=== PATIENT | male | born 1965 | race Caucasian/White ===

== ENCOUNTER 2016-06-24 10:01 | Emergency (ER) | payer SELFPAY ==
[2016-06-24 10:06] VITALS: BP 151/90; BMI 40.1
[2016-06-24] MEDS ORDERED: TORADOL 60 MG VIAL IM ONE (10:42)
--- NOTE | 2016-06-24 10:42 | DR.GENAD ---
HPI - PCP Primary Care Physician: nfd - Complaint/Symptoms Chief Complaint:: patient stated he has chronic back issues and yesterday he was helping his sister move and hurt it again. this morning he stated it was worse than yesterday. Self Treatment fo Chief Complaint: none - Source History Provided: Patient - Mode of Arrival Mode of Arrival: Ambulatory - Timing Onset of Chief Complaint: 06/22/16 Came on: Suddenly PMH - PMH Past Medical History: No Past Medical History: Anemia Past Surgical History: Yes Surgical History: AAA Repair, Carotid Endarterectomy, Cholecystectomy Past Surgical History Comment: hernia Unable to Obtain Due To: Altered mental status - Family History History of Family Medical Conditions: Yes Family Medical History: Diabetes Mellitus, Cancer, [place], Hypertension - Social History Does patient currently use any type of tobacco product: Yes Have you used tobacco products in the last 12 months: Yes Type of Tobacco Use: Cigarettes How many years tobacco product used: 40 Does any household member use tobacco: Yes Alcohol Use: None Do you use any recreational Drugs:: No Lives With: Family Lives Where: Home - infectious screening In the last 2 months have you had wt loss of >10#?: NO Have you had fever, night sweats or hemotysis?: No Have you traveled outside the country in the last 6 months?: No Isolation: Standard ROS - Review of Systems Constitutional: No Symptoms Reported Eyes: No Symptoms Reported ENTM: No Symptoms Reported Respiratoy: No Symptoms Reported Cardiovascular: No Symptoms Reported Gastrointestinal/Abdominal: No Symptoms Reported Genitourinary: No Symptoms Reported Neurological: No Symptoms Reported, Other (back pain) Musculoskeletal: No Symptoms Reported Integumentary: No Symptoms Reported Hematologic/Lymphatic: No Symptoms Reported Endocrine: No Symptoms Reported Psychiatric: No Symptoms Reported All Other Systems: Reviewed and Negative PE - Vital Signs Vitals: Temperature 98.6 F Pulse Rate 90 Respiratory Rate 16 Blood Pressure 151/90 O2 Sat by Pulse Oximetry 96 - General Limitations: No Limitations General Appearance: Alert, In No Apparent Distress - Head Head Exam: Normal Inspection, Atraumatic - Eyes Eye exam: Normal Appearance, PERRL, EOMI - ENT ENT Exam: Normal Exam, Mucous Membranes Moist TM/Canal Exam: Bilateral Normal Nose Exam: Normal Nose Exam Mouth Exam: Normal Inspection, Trismus - Neck Neck Exam: Normal Inspection - Chest Chest Inspection: Normal Inspection - Respiratory Respiratory Exam: Normal Lung Sounds Bilat Respiratory Exam: Bilateral Clear to Auscultation - Cardiovascular Cardiovascular Exam: Regular Rate, Normal Rhythm - Abdominal Exam Abdominal Exam: Normal Inspection Abdominal Tenderness: negative: RUQ, RLQ, LUQ, LLQ, Epigastrium, Suprapubic, Diffuse, Mild, Moderate, Severe, Other - Extremities Extremities Exam: Normal Inspection - Back Back Exam: Normal Inspection - Neurologic Neurological Exam: Alert, Oriented X3, CN II-XII Intact - Psychiatric Psychiatric Exam: Normal Affect - Skin Skin Exam: Warm, Intact ROR - XRAY XRAY Interpreted by: Radiologist (Lumbar spondylosis and dis space narrowing at L4-5 and L5-1; Grade 1 anerolisthesis of L4on L5) - Diagnosis Discharge Problem: Narrowing of intervertebral disc space - Discharge Plan Condition: Stable - Follow ups/Referrals Follow ups/Referrals: NFD,None [Primary Care Provider] - 3 days - Instructions
[2016-06-24] MEDS ORDERED: TORADOL 60 MG VIAL ONE (10:53)
--- NOTE | 2016-06-24 11:27 | RAD ---
HISTORY: Chronic back pain Study: Four views lumbar spine Comparison: None Findings: There is grade 1 anterolisthesis of L4 on L5. This may be due to pars interarticularis defects. Othe rwise alignment is normal. Vertebral body heights are preserved. There is multilevel spondylosis a nd degenerative disc space narrowing at L4-5 and L5-S1. No acute fracture or subluxation identified. IMPRESSION: 1. Lumbar spondylosis and disc space narrowing at L4-5 and L5-S1. 2. Grade 1 anterolisthesis of L4 on L5 that may be due to pars interarticularis defects. Reported By:
== END 2016-06-24 11:52 | disposition home or self-care (01) ==
LOC: ER 10:14
DX: M51.36 Other intervertebral disc degeneration, lumbar region (principal)
CPT/HCPCS: 72100; 96372; 99282; J1885

== ENCOUNTER 2019-08-13 18:50 | Inpatient (IN) ==
--- NOTE | 2019-08-13 19:03 | DR.CP ---
HPI Time Seen Time Seen by Provider: 08/13/19 19:03 PCP Primary Care Physician: PATRIZIA Complaint Chief Complaint Doctor Comments: Patient is a 53 year old male who presents ED with chest pain located in his left pectoral region rating down his left arm. Patient states he is had similar pain and it feels like when he had a heart attack several years ago. Patient states that he is had several episodes and more frequent episodes in the past week. Patient states he is also had some syncopal episodes in the past year. Patient states that he has high blood pressure, and shortness of breath in [place] consistent with heart failure he has not been worked up for that yet. Patient states that he smokes 2 packs a day and it is down from 4 packs a day. Patient has no other past medical history. Chief Complaint:: left sided chest pain earlier today; reports same pain on friday- Coronavirus risk:travel/contact w/high risk person: No Has patient experienced Coronavirus symptoms: No Reviewed Nurses Notes Review: Yes Source History Provided: Patient Mode of Arrival Mode of Arrival: Ambulatory Timing Onset of Chief Complaint: 08/10/19 PMH PMH Past Medical History: Yes Past Medical History: Anemia, Coronary Artery Disease, Dyslipidemia and Hy pertension Past Medical History Comment: HX [place]; CHRONIC BACK PAIN Past Surgical History: Yes Surgical History: AAA Repair, Carotid Endarterectomy and Cholecystectomy Family History History of Family Medical Conditions: Yes Family Medical History: Diabetes Mellitus, Cancer, [place] and Hypertension Social History Type of Tobacco Use: Cigars Does any household member use tobacco: No Alcohol Use: None Do you use any recreational Drugs:: No Lives With: Spouse Lives Where: Home Infectious screening Have you traveled outside the country in the last 6 months?: No Isolation: Standard ROS Review of Systems Constitutional: Fatigue Eyes: No Symptoms Reported ENTM: No Symptoms Reported Respiratoy: No Symptoms Reported Cardiovascular: Chest Pain and Edema Gastrointestinal/Abdominal: No Symptoms Reported Genitourinary: No Symptoms Reported Neurological: No Symptoms Reported Musculoskeletal: No Symptoms Reported Integumentary: No Symptoms Reported Hematologic/Lymphatic: No Symptoms Reported Endocrine: No Symptoms Reported Psychiatric: No Symptoms Reported All Other Systems: Reviewed and Negative PE Vitals Vitals: Temperature 97.5 F Pulse Rate 85 Respiratory Rate 14 Blood Pressure 127/61 O2 Sat by Pulse Oximetry 92 General Limitations: No Limitations General Appearance: Alert, In No Apparent Distress and Anxious Head Head Exam: Normal Inspection, Atraumatic and Normocephalic Eyes Eye exam: Normal Appearance, PERRL and EOMI MDM Differential Diagnosis Differential Diagnosis: Angina, Chest Wall Pain, Cholelithasis, Costochondritis, Myocardial Infarction, Pericarditis, Pneumonia and Pulmonary Embolus COURSE Reevaluation 1st: Improved (19:45 PT STABLE ) 2nd: Improved (20:20 pt is stable nc restarted and pt improved. ) 3rd: Unchanged (21:18 pt is stable and no change in symptoms. ) Consultation Consultation Comments: Dr. Mcgovern called and discussed case with Ana Cristina:19 and he agrees to admission Education/Counseling Education/Counseling: Patient, Family, Education and Counseling Educated On: Treatment, Diagnosis, Prognosis and Needs for Follow Up ROR Labs Reviewed Laboratory Results Reviewed?: Yes Result Diagrams: 08/13/19 19:24 08/13/19 19:24 Laboratory: WBC 7.6 X10^3/uL (3.6-10.0) 08/13/19 19: RBC 4.62 X10^6/uL (4.7-6.0) L 08/13/19 19:24 Hgb 14.4 g/dL (13.5-18.0) 08/13/19 19:24 Hct 41.7 % (42.0-54.0) L 08/13/19 19:24 MCV 90.3 fL (80.0-100.0) 08/13/19 19:24 MCH 31.2 pg (27.0-34.0) 08/13/19 19: MCHC 34.5 g/dL (33.0-35.0) 08/13/19 19:24 RDW 12.8 % (11.6-16.5) 08/13/19 19:24 Plt Count 239 X10^3/uL (150.0-450.0) 08/13/19 19:24 MPV 7.5 fL (7.4-11.0) 08/13/19 19:24 Neut % (Auto) 61.4 % (42.0-75.0) 08/13/19 19:24 Lymph % (Auto) 29.5 % (21.0-51.0) 08/13/19 19:24 [place] % (Auto) 5.9 % (0.0-13.0) 08/13/19 19:24 Eos % (Auto) 2.6 % (0.9-2.9) 08/13/19 19:24 Baso % (Auto) 0.6 % (0.2-1.0) 08/13/19 19:24 Neut # (Auto) 4.6 x10^3/uL (2.2-4.8) 08/13/19 19:24 Lymph # (Auto) 2.2 X10^3/uL (1.3-2.9) 08/13/19 19:24 [place] # (Auto) 0.4 x10^3/uL (0.3-0.8) 08/13/19 19:24 Eos # (Auto) 0.2 x10^3/uL (0.0-0.2) 08/13/19 19:24 Baso # (Auto) 0.0 X10^3/uL (0.0-0.1) 08/13/19 19:24 Absolute Nucleated RBC 0.0 /100WBC 08/13/19 19:24 PT 13.2 SECONDS (11.8-14.3) 08/13/19 19:24 INR Target Range - 08/13/19 19:24 INR 1.03 (0.8-1.3) 08/13/19 19:24 APTT 29.1 SECONDS (22.9-36.5) 08/13/19 19:24 PTT Comment - 08/13/19 19:24 D-Dimer 147 ng/mL (0-400) 08/13/19 19:24 Sample Site Rr 08/13/19 19:55 ABG pH 7.430 (7.35-7.45) 08/13/19 19:55 ABG pCO2 46.0 mmHg (35.0-45.0) H 08/13/19 19:55 ABG pO2 68.0 mmHg (80.0-100.0) L 08/13/19 19:55 ABG HCO3 30.5 mmol/L (22-26) H* 08/13/19 19:55 ABG O2 Saturation 94.0 % (90-100) 08/13/19 19:55 ABG Base Excess 5.3 mmol/L (-2.0-2.0) H 08/13/19 19:55 Maikol Test Pos 08/13/19 19:55 A-a Gradient 24.0 mmHg 08/13/19 19:55 FiO2 21.0 08/13/19 19:55 Blood Gas Comments Ranjeet well sw 08/13/19 19:55 Sodium 141 mmol/L (136-145) 08/13/19 19:24 Corrected Sodium 142 mmol/L (136-145) 08/13/19 19:24 Potassium 3.8 mmol/L (3.5-5.1) 08/13/19 19:24 Chloride 103 mmol/L (98-107) 08/13/19 19:24 Carbon Dioxide 30.3 mmol/L (21-32) 08/13/19 19:24 BUN 20 mg/dL (7-18) H 08/13/19 19:24 Creatinine 1.33 mg/dL (0.70-1.30) H 08/13/19 19:24 Est GFR (MDRD) Af Amer > 60 (>60) 08/13/19 19:24 Est GFR (MDRD) Non-Af > 60 (>60) 08/13/19 19:24 Glucose 124 mg/dL (65-99) H 08/13/19 19:24 Calcium 8.6 mg/dL (8.5-10.1) 08/13/19 19:24 Corrected Calcium 9.2 mg/dL (8.5-10.1) 08/13/19 19:24 Total Bilirubin 0.30 mg/dL (0.2-1.0) 08/13/19 19:24 AST 26 Units/L (15-37) 08/13/19 19:24 ALT 45 Units/L (12-78) 08/13/19 19:24 Alkaline Phosphatase 76 Units/L (46-116) 08/13/19 19:24 Creatine Kinase 318 Units/L (39-308) H 08/13/19 19:24 CK-MB (CK-2) 2.5 ng/mL (0-4.0) 08/13/19 19:24 CK/CKMB % Calc 0.8 % (<4) 08/13/19 19:24 Troponin I < 0.02 ng/mL (0-1.5) 08/13/19 19:24 B-Natriuretic Peptide 10.6 pg/mL (0-79) 08/13/19 19:24 Total Protein 7.6 g/dL (6.4-8.2) 08/13/19 19:24 Albumin 3.3 g/dL (3.4-5.0) L 08/13/19 19:24 Globulin 4.3 g/dL (2.5-4.5) 08/13/19 19:24 Albumin/Globulin Ratio 0.8 Ratio (1.1-2.1) L 08/13/19 19:24 Other Results Comments: [id number] 1965 Sex: M Location: ER Order Number(s): [id number] Procedure(s):CHEST, 1 VIEW Ordering Physician: Tani Osborn Primary Care: NFD,None Service Date: 08/13/19 Service Time: 1910 HISTORY CP STUDY CHEST, 1 VIEW COMPARISON None FINDINGS The trachea is midline. The cardiac silhouette is unremarkable . The lungs are relatively clear without focal infiltrate or effusion. The bony thorax is unremarkable. IMPRESSION No acute cardiopulmonary disease. Electronically signed by: ERASMO GIRON (August 13, 2019 19:40:54) Report Electronically signed: 08/13/[id number] CC: Tani Osborn M.D. XRAY XRAY Interpreted by: Both EKG Rate: 94 (Read by Tani Osborn @ 19:08, no acute ischemia, no prior available to compare to. ) [place]: Normal Rhythm: NSR Block: None Hypertrophy: None ST: Normal Opioid Opioid Risk Tool Total: 0 Total Score Risk Category: Low Risk Copyright: Yao predicting aberrant behaviors Diagnosis Discharge Problem: ACS (acute coronary syndrome), Hypoxia Narrative Support Text: Today the patient was seen in the emergency department. All labs, imaging, consults with other specialists, and procedures were discussed with the patient and or patients family. All emergent needs such as pain mgmt, medical mgmt, Procedures, or consultations were addressed. The care plan has been discussed with the patient and or patients family. Patients and or family stated agreement and understanding of risks and benefits of care plans.
[2019-08-13] MEDS ORDERED: ASPIRIN 81 MG CHEWTAB ONE (19:12)
[2019-08-13] MEDS ORDERED: ASPIRIN 81 MG CHEWTAB PO ONE (19:29)
[2019-08-13 19:39] LABS: BASOPHILS % (AUTO) 0.6 % (0.2-1.0); EOSINOPHILS # (AUTO) 0.2 x10^3/uL (0.0-0.2); EOSINOPHILS % (AUTO) 2.6 % (0.9-2.9); HEMATOCRIT 41.7 % (42.0-54.0); HEMOGLOBIN 14.4 g/dL (13.5-18.0); LYMPHOCYTES # (AUTO) 2.2 X10^3/uL (1.3-2.9); LYMPHOCYTES % (AUTO) 29.5 % (21.0-51.0); MEAN CORPUSCULAR HEMOGLOBIN 31.2 pg (27.0-34.0); MEAN CORPUSCULAR HGB CONC 34.5 g/dL (33.0-35.0); MEAN CORPUSCULAR VOLUME 90.3 fL (80.0-100.0); MEAN PLATELET VOLUME 7.5 fL (7.4-11.0); MONOCYTES # (AUTO) 0.4 x10^3/uL (0.3-0.8); MONOCYTES % (AUTO) 5.9 % (0.0-13.0); NEUTROPHILS # (AUTO) 4.6 x10^3/uL (2.2-4.8); NEUTROPHILS % (AUTO) 61.4 % (42.0-75.0); PLATELET COUNT 239 X10^3/uL (150.0-450.0); RED BLOOD COUNT 4.62 X10^6/uL (4.7-6.0); RED CELL DISTRIBUTION WIDTH 12.8 % (11.6-16.5); WHITE BLOOD COUNT 7.6 X10^3/uL (3.6-10.0)
--- NOTE | 2019-08-13 19:42 | RAD ---
HISTORYCPSTUDYCHEST, 1 VIEWCOMPARISONNoneFINDINGSThe trachea is midline. The cardiac silhouette is unremarkable . The lungs are relatively clear without focal infiltrate or effusion. The bony thorax is unremarkable.IMPRESSIONNo acute cardiopulmonary disease.Electronically signed by: ERASMO GIRON (August 13, 2019 19:40:54)
[2019-08-13 19:53] LABS: BLOOD UREA NITROGEN 20 mg/dL (7-18); CALCIUM 8.6 mg/dL (8.5-10.1); CARBON DIOXIDE 30.3 mmol/L (21-32); CHLORIDE 103 mmol/L (98-107); COR NA(FOR HYPERGLY) 142 mmol/L (136-145); CREATININE 1.33 mg/dL (0.70-1.30); SODIUM 141 mmol/L (136-145); TROPONIN I < 0.02 ng/mL (0-1.5); eGFR NON BLACK RACES > 60 (>60)
[2019-08-13 19:58] LABS: ALANINE AMINOTRANSFERASE 45 Units/L (12-78); ALBUMIN 3.3 g/dL (3.4-5.0); ALKALINE PHOSPHATASE 76 Units/L (46-116); ASPARTATE AMINO TRANSFERASE 26 Units/L (15-37); CKMB % 0.8 % (<4); COR CA(FOR HYPOALB) 9.2 mg/dL (8.5-10.1); CREATINE KINASE 318 Units/L (39-308); CREATINE KINASE MB 2.5 ng/mL (0-4.0); TOTAL PROTEIN 7.6 g/dL (6.4-8.2)
[2019-08-13] MEDS ORDERED: LASIX IVP ONE ×2 (19:59→20:36)
[2019-08-13 20:11] LABS: ABG ALLEN TEST POS; ABG BASE EXCESS 5.3 mmol/L (-2.0-2.0); ABG HCO3 30.5 mmol/L (22-26)
[2019-08-13 21:52] LABS: BILIRUBIN,URINE NEGATIVE (NEGATIVE); BLOOD/HEMOGLOBIN,URINE NEGATIVE (NEGATIVE); GLUCOSE, URINE NEGATIVE (NEGATIVE); KETONES,URINE NEGATIVE (NEGATIVE); LEUKOCYTE ESTERASE ,URINE NEGATIVE (NEGATIVE); NITRITES,URINE NEGATIVE (NEGATIVE); PROTEIN,URINE NEGATIVE (NEGATIVE); UROBILINOGEN,URINE 1+ (NORMAL)
[2019-08-13 22:07] LABS: APPEARANCE,URINE CLEAR (CLEAR); COLOR,URINE YELLOW (YELLOW); RBC,URINE NONE SEEN /HPF (0-3)
[2019-08-13 22:08] LABS: BACTERIA,URINE NEGATIVE /HPF (NEGATIVE); SQUAMOUS EPITHELIAL CELL,UR RARE /HPF (NEGATIVE)
[2019-08-13] MEDS ORDERED: LOVENOX INJ 120 MG SYR SC ONE (22:46)
[2019-08-13] MEDS ORDERED: NS 1000 ML 1,000 ML ONE (22:46)
[2019-08-13] MEDS ORDERED: LOVENOX INJ 40 MG SYR SC ONE (22:47)
[2019-08-13] MEDS: LOVENOX INJ 150 MG SYR SC SCH (22:50)
[2019-08-13] MEDS: NS 1000 ML 1,000 ML IV SCH (22:55)
[2019-08-14 01:44] LABS: CKMB % 0.7 % (<4); CREATINE KINASE 325 Units/L (39-308); CREATINE KINASE MB 2.2 ng/mL (0-4.0); TROPONIN I < 0.02 ng/mL (0-1.5)
[2019-08-14] MEDS ORDERED: PERCOCET TAB 5/325 MG PO PRN (02:28)
[2019-08-14 05:40] LABS: BASOPHILS # (AUTO) 0.1 X10^3/uL (0.0-0.1); EOSINOPHILS # (AUTO) 0.3 x10^3/uL (0.0-0.2); EOSINOPHILS % (AUTO) 3.7 % (0.9-2.9); HEMATOCRIT 41.9 % (42.0-54.0); HEMOGLOBIN 14.1 g/dL (13.5-18.0); LYMPHOCYTES # (AUTO) 2.9 X10^3/uL (1.3-2.9); LYMPHOCYTES % (AUTO) 42.1 % (21.0-51.0); MEAN CORPUSCULAR HEMOGLOBIN 30.9 pg (27.0-34.0); MEAN CORPUSCULAR HGB CONC 33.8 g/dL (33.0-35.0); MEAN CORPUSCULAR VOLUME 91.4 fL (80.0-100.0); MEAN PLATELET VOLUME 8.7 fL (7.4-11.0); MONOCYTES # (AUTO) 0.5 x10^3/uL (0.3-0.8); MONOCYTES % (AUTO) 6.6 % (0.0-13.0); NEUTROPHILS # (AUTO) 3.3 x10^3/uL (2.2-4.8); NEUTROPHILS % (AUTO) 46.6 % (42.0-75.0); PLATELET COUNT 230 X10^3/uL (150.0-450.0); RED BLOOD COUNT 4.58 X10^6/uL (4.7-6.0); RED CELL DISTRIBUTION WIDTH 12.7 % (11.6-16.5)
[2019-08-14 05:57] LABS: ALANINE AMINOTRANSFERASE 42 Units/L (12-78); ALBUMIN 3.4 g/dL (3.4-5.0); ALKALINE PHOSPHATASE 77 Units/L (46-116); ASPARTATE AMINO TRANSFERASE 23 Units/L (15-37); BLOOD UREA NITROGEN 20 mg/dL (7-18); CALCIUM 8.3 mg/dL (8.5-10.1); CARBON DIOXIDE 30.4 mmol/L (21-32); CHLORIDE 103 mmol/L (98-107); COR NA(FOR HYPERGLY) 139 mmol/L (136-145); CREATININE 1.09 mg/dL (0.70-1.30); SODIUM 139 mmol/L (136-145); TOTAL PROTEIN 7.7 g/dL (6.4-8.2); eGFR NON BLACK RACES > 60 (>60)
[2019-08-14] MEDS: NS 1000 ML 1,000 ML IV SCH ×2 (06:11→16:57)
[2019-08-14] MEDS ORDERED: PERCOCET TAB 5/325 MG ONE (06:18)
[2019-08-14 08:02] LABS: CKMB % 0.7 % (<4); CREATINE KINASE 291 Units/L (39-308); TROPONIN I < 0.02 ng/mL (0-1.5)
[2019-08-14] MEDS: NICOTINE PATCH TD SCH (08:40)
[2019-08-14] MEDS: LOVENOX INJ 150 MG SYR SC SCH ×2 (09:35→20:48)
--- NOTE | 2019-08-14 11:08 | DR.H&P ---
H&P - History & Physical for Day of: H&P Date: 08/13/19 - Chief Complaint Chief Complaint: chest pain, sob - History of Present Illness History of Present Illness: PT IS 53 WM ER ADMISSION WITH CHEST PAIN AND DOBSON. PT REPORTS HE IS DAILY SMOKER BUT REPORTS INCREASED SOB WITHOUT FEVER OR UPPER RESPIRATORY SYMPTOMS. PT REPORTS MULTIPLE NEAR SYNCOPAL EPISODES. PT REPORTS HE HAD A "HEART ATTACK" OVER 5 YEARS AGO, DENIES BYPASS OR STENT. PT HAS AAA REPAIR AND CAROTID ENDARTECOMTY. PT ADMITTED FOR TREATMENT OF ACUTE ILLNESS, R/O AMI. - Past Medical History Past Medical History: Coronary Artery Disease, Hypertension, Dyslipidemia, Anemia - Past Surgical History Surgical History: AAA Repair, Carotid Endarterectomy, Cholecystectomy - Family History Family Medical History: Diabetes Mellitus, Cancer, [place], Coronary Artery Disease, Heart Failure, Sudden Cardiac , Hypertension - Social History Does patient currently use any type of tobacco product: Yes Type of Tobacco Use: Cigarettes How many years tobacco product used: 35 Does any household member use tobacco: No Alcohol Use: None Drug Use: None - Medications Home Medications: No Known Allergies [NKA] Allergy (Verified 08/13/19 19:00) CONTINUE taking the following medications aspirin 325 mg PO DAILY 08/13/19 [History] gabapentin 100 mg PO BID 08/13/19 [History] lisinopril 5 mg PO DAILY 08/13/19 [History] meloxicam 15 mg PO DAILY 08/13/19 [History] oxycodone-acetaminophen 1 tab PO QID PRN 08/13/19 [History] rosuvastatin 20 mg PO DAILY 08/13/19 [History] tizanidine 4 mg PO QHS 08/13/19 [History] triamterene-hydrochlorothiazid 1 cap PO DAILY 08/13/19 [History] - Review of Systems Constitutional: Weakness Eyes: No Symptoms Reported, Vision Change Respiratory: Shortness of Breath, SOB with Excertion Cardiovascular: Chest Pain, Edema Gastrointestinal: No Symptoms Reported Genitourinary: No Symptoms Reported Musculoskeletal: No Symptoms Reported Skin: No Symptoms Reported Neurological: No Symptoms Reported - Physical Exam Vital Signs: Temperature 98.3 F Pulse Rate [Apical] 96 Pulse Rate 72 Respiratory Rate 20 Blood Pressure [Left Arm] 117/75 Blood Pressure 106/64 O2 Sat by Pulse Oximetry 93 Oriented: Normal Eyes: Normal Ear: Normal Nose: Normal Throat: Normal Respiratory: RLL Diminished, LLL Diminished Cardiovascular: Normal, Edema : Normal Auscultation: Bowel Sounds: Normal Palpation: Normal Tenderness: Normal Skin: Normal Musculoskeletal: Normal Psychiatric: Normal Affect: Anxious Speech Pattern: Clear, Appropriate - Assessment/Plan (1) Chest pain Status: Acute Plan: ADMIT SERIAL CE AND EKG. CXR ON ADMISSION, ABG ON ADMISSION. VERIFY HOME MEDICATION, BP CONTROL. SUPPLEMENTAL O2 (2) DOBSON (dyspnea on exertion) Status: Acute (3) Hypertension Status: Acute (4) Hyperlipidemia Status: Acute - Allergies Allergies/Adverse Reactions: Allergies Allergy/AdvReac Type Severity Reaction Status Date / Time No Known Allergies [NKA] Allergy Verified 08/13/19 19:00
--- NOTE | 2019-08-14 11:14 | PCM.PROG ---
Progress Note - Progress Note for Day of Date of Exam: 08/14/19 - Subjective Subjective: PT IS 53 WM ER ADMISSION WITH CO CHEST PAIN, EXERTIONAL SOB AND NEAR SYNCOPE. PT HAD SERIAL CE AND EKG. PT HAD ELEVATED CK ON ADMISSION, IMPROVED TO NORMAL THIS AM. PT EKG WITH NSR. PT CONTINUES TO CO SOB ON EXERTION EVEN UP TO RESTROOM. PT IS CURRENTLY ON SUPPLEMENTAL O2 WITH O2 SAT 94%. RESUMED ASPIRIN, STATIN AND ANTIHYPERTION. PLAN TO OBTAIN CTA CHEST THIS AM. - Past Medical Family Social History Past Med/Fam/Surg Hx: No changes since H&P Allergies: Allergies No Known Allergies [NKA] Allergy (Verified 08/13/19 19:00) - Review of Systems ROS: No change since H&P - Vital Signs and I&O's Vital Signs: Temperature 98.3 F Pulse Rate [Apical] 96 Pulse Rate 72 Respiratory Rate 20 Blood Pressure [Left Arm] 117/75 Blood Pressure 106/64 O2 Sat by Pulse Oximetry 93 Intake and Output: Intake & Output 08/11/19 08/12/19 08/13/19 08/14/19 11:59 11:59 11:59 11:59 Intake Total 920 / 920 Output Total 1300 / 1300 Balance -380 / -380 - Physical Exam Oriented: Normal Eyes: Normal Ear: Normal Nose: Normal Throat: Normal Respiratory: Diminished Cardiovascular: Normal, Edema : Normal Auscultation: Bowel Sounds: Normal Tenderness: Normal Skin: Normal Musculoskeletal: Normal Psychiatric: Normal Affect: Anxious Speech Pattern: Clear, Appropriate - Laboratory and Diagnostics Result Diagrams: 08/14/19 04:30 08/14/19 04:30 Labs: Laboratory WBC 7.0 X10^3/uL (3.6-10.0) 08/14/19 04:30 RBC 4.58 X10^6/uL (4.7-6.0) L 08/14/19 04:30 Hgb 14.1 g/dL (13.5-18.0) 08/14/19 04:30 Hct 41.9 % (42.0-54.0) L 08/14/19 04:30 MCV 91.4 fL (80.0-100.0) 08/14/19 04:30 MCH 30.9 pg (27.0-34.0) 08/14/19 04:30 MCHC 33.8 g/dL (33.0-35.0) 08/14/19 04:30 RDW 12.7 % (11.6-16.5) 08/14/19 04:30 Plt Count 230 X10^3/uL (150.0-450.0) 08/14/19 04:30 MPV 8.7 fL (7.4-11.0) 08/14/19 04:30 Neut % (Auto) 46.6 % (42.0-75.0) 08/14/19 04:30 Lymph % (Auto) 42.1 % (21.0-51.0) 08/14/19 04:30 [place] % (Auto) 6.6 % (0.0-13.0) 08/14/19 04:30 Eos % (Auto) 3.7 % (0.9-2.9) H 08/14/19 04:30 Baso % (Auto) 1.0 % (0.2-1.0) 08/14/19 04:30 Neut # (Auto) 3.3 x10^3/uL (2.2-4.8) 08/14/19 04:30 Lymph # (Auto) 2.9 X10^3/uL (1.3-2.9) 08/14/19 04:30 [place] # (Auto) 0.5 x10^3/uL (0.3-0.8) 08/14/19 04:30 Eos # (Auto) 0.3 x10^3/uL (0.0-0.2) H 08/14/19 04:30 Baso # (Auto) 0.1 X10^3/uL (0.0-0.1) 08/14/19 04:30 Absolute Nucleated RBC 0.0 /100WBC 08/14/19 04:30 PT 13.2 SECONDS (11.8-14.3) 08/13/19 19:24 INR Target Range - 08/13/19 19:24 INR 1.03 (0.8-1.3) 08/13/19 19:24 APTT 29.1 SECONDS (22.9-36.5) 08/13/19 19:24 PTT Comment - 08/13/19 19:24 D-Dimer 147 ng/mL (0-400) 08/13/19 19:24 Sample Site Rr 08/13/19 19:55 ABG pH 7.430 (7.35-7.45) 08/13/19 19:55 ABG pCO2 46.0 mmHg (35.0-45.0) H 08/13/19 19:55 ABG pO2 68.0 mmHg (80.0-100.0) L 08/13/19 19:55 ABG HCO3 30.5 mmol/L (22-26) H* 08/13/19 19:55 ABG O2 Saturation 94.0 % (90-100) 08/13/19 19:55 ABG Base Excess 5.3 mmol/L (-2.0-2.0) H 08/13/19 19:55 Maikol Test Pos 08/13/19 19:55 A-a Gradient 24.0 mmHg 08/13/19 19:55 FiO2 21.0 08/13/19 19:55 Blood Gas Comments Ranjeet well sw 08/13/19 19:55 Sodium 139 mmol/L (136-145) 08/14/19 04:30 Corrected Sodium 139 mmol/L (136-145) 08/14/19 04:30 Potassium 3.7 mmol/L (3.5-5.1) 08/14/19 04:30 Chloride 103 mmol/L (98-107) 08/14/19 04:30 Carbon Dioxide 30.4 mmol/L (21-32) 08/14/19 04:30 BUN 20 mg/dL (7-18) H 08/14/19 04:30 Creatinine 1.09 mg/dL (0.70-1.30) 08/14/19 04:30 Est GFR (MDRD) Af Amer > 60 (>60) 08/14/19 04:30 Est GFR (MDRD) Non-Af > 60 (>60) 08/14/19 04:30 Glucose 115 mg/dL (65-99) H 08/14/19 04:30 POC Glucose (mg/dL) 123 mg/dL (65-99) H 08/14/19 11:08 Calcium 8.3 mg/dL (8.5-10.1) L 08/14/19 04:30 Corrected Calcium TNP 08/14/19 04:30 Total Bilirubin 0.30 mg/dL (0.2-1.0) 08/14/19 04:30 AST 23 Units/L (15-37) 08/14/19 04:30 ALT 42 Units/L (12-78) 08/14/19 04:30 Alkaline Phosphatase 77 Units/L (46-116) 08/14/19 04:30 Creatine Kinase 291 Units/L (39-308) 08/14/19 07:15 CK-MB (CK-2) 2.0 ng/mL (0-4.0) 08/14/19 07:15 CK/CKMB % Calc 0.7 % (<4) 08/14/19 07:15 Troponin I < 0.02 ng/mL (0-1.5) 08/14/19 07:15 B-Natriuretic Peptide 10.6 pg/mL (0-79) 08/13/19 19:24 Total Protein 7.7 g/dL (6.4-8.2) 08/14/19 04:30 Albumin 3.4 g/dL (3.4-5.0) 08/14/19 04:30 Globulin 4.3 g/dL (2.5-4.5) 08/14/19 04:30 Albumin/Globulin Ratio 0.8 Ratio (1.1-2.1) L 08/14/19 04:30 Specimen Type Random urine 08/13/19 21:36 Urine Color Yellow (YELLOW) 08/13/19 21:36 Urine Appearance Clear (CLEAR) 08/13/19 21:36 Urine pH 7.0 (5.0 - 8.0) 08/13/19 21:36 Ur Specific [place] 1.010 (1.000-1.030) 08/13/19 21:36 Urine Protein Negative (NEGATIVE) 08/13/19 21:36 Urine Glucose (UA) Negative (NEGATIVE) 08/13/19 21:36 Urine Ketones Negative (NEGATIVE) 08/13/19 21:36 Urine Occult Blood Negative (NEGATIVE) 08/13/19 21:36 Urine Nitrite Negative (NEGATIVE) 08/13/19 21:36 Urine Bilirubin Negative (NEGATIVE) 08/13/19 21:36 Urine Urobilinogen 1+ (NORMAL) 08/13/19 21:36 Ur Leukocyte Esterase Negative (NEGATIVE) 08/13/19 21:36 Urine RBC None seen /HPF (0-3) 08/13/19 21:36 Urine WBC 0-2 /HPF (0-5) 08/13/19 21:36 Ur Squamous Epith Cells Rare /HPF (NEGATIVE) 08/13/19 21:36 Urine Bacteria Negative /HPF (NEGATIVE) 08/13/19 21:36 Ur Culture Indicated? No/not indicated 08/13/19 21:36 SARS-CoV-2 (PCR) Negative (NEGATIVE) 08/13/19 21:36 - Plan (1) Chest pain Status: Acute Plan: SERIAL CE AND EKG OBTAINED ON ADMISSION. ABG ON ADMISSION, CTA CHEST THIS AM, KEEP NPO UNTIL SCAN. ASPIRIN, STATIN THERAPY, BP CONTROL. SUPPLEMENTAL O2 (2) DOBSON (dyspnea on exertion) Status: Acute (3) Hypertension Status: Acute (4) Hyperlipidemia Status: Acute
[2019-08-14] MEDS: ASPIRIN PO SCH (11:29)
[2019-08-14] MEDS: ZESTRIL TAB 5 MG PO SCH (11:29)
[2019-08-14] MEDS: PATIENT'S HOME MEDICATION PO PRN ×3 (11:30→21:52)
[2019-08-14] MEDS: NEURONTIN CAP 100 MG PO SCH ×2 (11:30→20:48)
[2019-08-14 12:48] VITALS: BMI 43.3
--- NOTE | 2019-08-14 14:35 | CT ---
HISTORYCHEST PAIN, SOBSTUDYCTA CHESTCOMPARISONNoneTECHNIQUEMultiple axial images of the chest were obtained from the thoracic inlet to the upper abdomen after the administration of IV contrast. 3D reconstructions utilizing axial MIPS imaging was performed and reviewed. Dose reduction techniques including Automated Exposure Control (AEC) and adjustment of mA and kV were utilized.FINDINGSScattered subcentimeter lymph nodes are seen within the mediastinum. There is no significant pericardial effusion observed. The thoracic aorta is normal in its contour without evidence for aneurysmal dilatation. Timing of the contrast bolus is suboptimal for evaluation of pulmonary emboli. Mild emphysematous changes are noted. Subsegmental atelectasis and/or scarring are seen within both lower lobes. Otherwise no CT evidence of focal consolidation, pneumothorax, or pleural effusion is identified.IMPRESSIONMild emphysematous changes.Suboptimal timing of the contrast bolus for evaluation of pulmonary emboli.Electronically signed by: ERASMO GIRON (August 14, 2019 14:34:31)
[2019-08-15] MEDS: NS 1000 ML 1,000 ML IV SCH ×2 (04:21→05:33)
[2019-08-15 06:00] LABS: BASOPHILS % (AUTO) 0.6 % (0.2-1.0); EOSINOPHILS # (AUTO) 0.2 x10^3/uL (0.0-0.2); EOSINOPHILS % (AUTO) 2.6 % (0.9-2.9); HEMATOCRIT 39.8 % (42.0-54.0); HEMOGLOBIN 13.6 g/dL (13.5-18.0); LYMPHOCYTES # (AUTO) 2.3 X10^3/uL (1.3-2.9); LYMPHOCYTES % (AUTO) 38.1 % (21.0-51.0); MEAN CORPUSCULAR HEMOGLOBIN 31.3 pg (27.0-34.0); MEAN CORPUSCULAR HGB CONC 34.1 g/dL (33.0-35.0); MEAN CORPUSCULAR VOLUME 91.7 fL (80.0-100.0); MONOCYTES # (AUTO) 0.4 x10^3/uL (0.3-0.8); NEUTROPHILS # (AUTO) 3.2 x10^3/uL (2.2-4.8); NEUTROPHILS % (AUTO) 52.7 % (42.0-75.0); PLATELET COUNT 220 X10^3/uL (150.0-450.0); RED BLOOD COUNT 4.34 X10^6/uL (4.7-6.0); RED CELL DISTRIBUTION WIDTH 12.9 % (11.6-16.5)
[2019-08-15 06:25] LABS: ALANINE AMINOTRANSFERASE 53 Units/L (12-78); ALBUMIN 3.1 g/dL (3.4-5.0); ALKALINE PHOSPHATASE 65 Units/L (46-116); ASPARTATE AMINO TRANSFERASE 31 Units/L (15-37); CALCIUM 8.7 mg/dL (8.5-10.1); CARBON DIOXIDE 29.7 mmol/L (21-32); CHLORIDE 105 mmol/L (98-107); CKMB % 0.6 % (<4); COR CA(FOR HYPOALB) 9.4 mg/dL (8.5-10.1); COR NA(FOR HYPERGLY) 141 mmol/L (136-145); CREATINE KINASE 171 Units/L (39-308); CREATINE KINASE MB 1.1 ng/mL (0-4.0); CREATININE 1.08 mg/dL (0.70-1.30); SODIUM 140 mmol/L (136-145); TOTAL PROTEIN 7.3 g/dL (6.4-8.2); TROPONIN I < 0.02 ng/mL (0-1.5); eGFR NON BLACK RACES > 60 (>60)
[2019-08-15 06:36] LABS: BLOOD UREA NITROGEN 15 mg/dL (7-18)
[2019-08-15] MEDS ORDERED: CRESTOR TAB 10 MG PO SCH (09:00)
[2019-08-15] MEDS: NEURONTIN CAP 100 MG PO SCH (09:49)
[2019-08-15] MEDS: ASPIRIN PO SCH (09:49)
[2019-08-15] MEDS: ZESTRIL TAB 5 MG PO SCH (09:49)
[2019-08-15] MEDS: LOVENOX INJ 150 MG SYR SC SCH (09:49)
[2019-08-15] MEDS: NICOTINE PATCH TD SCH (09:50)
[2019-08-15] MEDS: PATIENT'S HOME MEDICATION PO PRN (10:12)
[2019-08-15 12:12] VITALS: BP 123/71
== END 2019-08-15 12:35 | disposition short-term general hospital (02) | DRG 313 ==
LOC: MED/SURG 18:52 → ER 18:52 → MED/SURG 23:36
PROVIDERS: ADMIT Internal Medicine; ATTEND Internal Medicine
DX: R55 Syncope and collapse; R06.02 Shortness of breath; I26.99 Other pulmonary embolism without acute cor pulmonale; I25.10 Atherosclerotic heart disease of native coronary artery without angina pectoris; Z72.0 Tobacco use; I11.9 Hypertensive heart disease without heart failure; E11.65 Type 2 diabetes mellitus with hyperglycemia; R07.89 Other chest pain; E78.2 Mixed hyperlipidemia; Z11.59 Encounter for screening for other viral diseases
CPT/HCPCS: 36415; 36600; 71010; 71045; 71275; 80053; 81001; 82550; 82553; 82803; 83880; 84484; 85025; 85378; 85610; 85730; 87635; 93005; 94760; 96365; 96372; 96374; 96375; 99284; A4222; G0378; J1650; J1940; J7030

== ENCOUNTER 2021-08-03 08:53 | Observation (INO) ==
[2021-08-03 09:02] VITALS: BMI 41.3
--- NOTE | 2021-08-03 09:21 | DR.CP ---
HPI Time Seen Time Seen by Provider: 08/03/21 09:08 PCP Primary Care Physician: DR ACHARYA Complaint Chief Complaint Doctor Comments: left eye pain and left chest pain since yesterday. History of spivey's pausy and heart disease. Chief Complaint:: PT C/O DIFFICULTY SEEING OUT OF LEFT EYE SINCE YESTERDAY ASSOCIATED WITH PHOTOSENSITIVITY AND PAIN. THIS MORNING PT STARTED HAVING CONSTANT SUBSTERNAL CHEST HEAVINESS WITH PALPITATIONS WITH SHORTNESS OF BREATH. Self Treatment fo Chief Complaint: TOOK ASPIRIN 81MG PO THIS MORNING. Source History Provided: Patient Mode of Arrival Mode of Arrival: Ambulatory Timing Onset of Chief Complaint: 08/03/21 PMH PMH Past Medical History: Yes Past Medical History: Coronary Artery Disease, Hypertension and [place] Past Medical History Comment: DEGENERATIVE DISC DISEASE, BELLS PALSY Past Surgical History: Yes Surgical History: Ortho Surgery Past Surgical History Comment: BACK SURGERY, LEFT ROTATOR CUFF REPAIR Family History History of Family Medical Conditions: Yes Family Medical History: Diabetes Mellitus, [place] and Coronary Artery Disease Social History Does patient currently use any type of tobacco product: Yes Have you used tobacco products in the last 12 months: Yes Type of Tobacco Use: Cigarettes Does any household member use tobacco: No Alcohol Use: None Do you use any recreational Drugs:: No Lives With: Family Lives Where: Home Infectious screening In the last 2 months have you had wt loss of >10#?: NO Have you had fever, night sweats or hemotysis?: No Have you traveled outside the country in the last 6 months?: No Isolation: Standard ROS Review of Systems Constitutional: No Symptoms Reported Eyes: Eye Pain (left eye pain) ENTM: No Symptoms Reported Respiratoy: No Symptoms Reported Cardiovascular: Chest Pain (left chest pain starting this am but had practically resolved by the time he presented to the er.) Gastrointestinal/Abdominal: No Symptoms Reported Genitourinary: No Symptoms Reported Neurological: No Symptoms Reported Musculoskeletal: No Symptoms Reported Integumentary: No Symptoms Reported Hematologic/Lymphatic: No Symptoms Reported Endocrine: No Symptoms Reported Psychiatric: No Symptoms Reported All Other Systems: Reviewed and Negative PE Vitals Vitals: Temperature 97.5 F Pulse Rate 53 Respiratory Rate 10 Blood Pressure [Right Arm] 123/71 Blood Pressure [Left Arm] 117/75 Blood Pressure 162/69 O2 Sat by Pulse Oximetry 93 General Limitations: No Limitations General Appearance: Alert and In Distress (mild distress) Head Head Exam: Normal Inspection Eyes Eye exam: Normal Appearance and Other (right pupil constrivcted but reacts,left pupil dilated but react sluggishly.) ENT ENT Exam: Normal Exam Chest Chest Inspection: Normal Inspection Respiratory Respiratory Exam: Normal Lung Sounds Bilat Cardiovascular Cardiovascular Exam: Regular Rate and Normal Rhythm Pulse: Normal Edema: Normal Abdominal Exam Abdominal Exam: Normal Inspection, Normal Bowel Sounds and Soft Extremities Extremities Exam: Normal Inspection Back Back Exam: Normal Inspection Neurologic Neurological Exam: Alert and Oriented X3 Psychiatric Psychiatric Exam: Normal Affect and Normal Mood Skin Skin Exam: Warm, Dry, Intact and Normal Color MDM Additional Information Findings: UNEQUAL PUPILS,CHEST PAIN,LEFT EYE PAIN,TIA,CVA,FATIGUE Differential Diagnosis Differential Diagnosis: Angina COURSE Treatment Treatment: PATIENT REMAINED RELATIVELY STABLE DURING ER EVALUATION. CARDIAC RESENDEZ WAS NEGATIVE EXCEPT SINUS BRADYCARDIA. CARDIAC ENZYMES WERE NORMAL AND CT OF BRAIN WAS NEGATIVE FOR BLEED OR MASSS. THE CHEST XRAY SHOWED COPD. PATIENT WAS GIVEN ASA 325MG IN ER AND WILL NEED FURTHER EVALUATION OF LEFT PUPIL FOR DILATION. SPOKE TO DR ACHARYA AT 1125 ABOUT THIS PATIENT AND HE STATED TO REFER TO OBSERVATION TO FURTHER R/O CARDIAC ISSUES AND OBSEREVE NEUROLOGICALLY FOR ANY CHANGES. WILL GET MRI OF BRAIN TODAY OR TOMORROW. THE PATIENT WAS TOLD OF THE INTENT AND WAS AGGREABLE TO THE OBSERVATION. ROR Labs Reviewed Laboratory Results Reviewed?: Yes Result Diagrams: 08/03/21 09:31 08/03/21 09:31 Laboratory: WBC 9.2 X10^3/uL (3.6-10.0) 08/03/21 09:31 RBC 5.11 X10^6/uL (4.7-6.0) 08/03/21 09:31 Hgb 16.0 g/dL (13.5-18.0) 08/03/21 09:31 Hct 45.6 % (42.0-54.0) 08/03/21 09:31 MCV 89.2 fL (80.0-100.0) 08/03/21 09:31 MCH 31.4 pg (27.0-34.0) 08/03/21 09: MCHC 35.2 g/dL (33.0-35.0) H 08/03/21 09: RDW 13.5 % (11.6-16.5) 08/03/21 09:31 Plt Count 251 X10^3/uL (150.0-450.0) 08/03/21 09: MPV 7.7 fL (7.4-11.0) 08/03/21: Neut % (Auto) 70.5 % (42.0-75.0) 08/03/21: Lymph % (Auto) 23.0 % (21.0-51.0) 08/03/21: Terrell % (Auto) 3.8 % (0.0-13.0) 08/03/21: Eos % (Auto) 0.4 % (0.9-2.9) L 08/03/21: Baso % (Auto) 2.3 % (0.2-1.0) H 08/03/21: Neut # (Auto) 6.5 x10^3/uL (2.2-4.8) H 08/03/21: Lymph # (Auto) 2.1 X10^3/uL (1.3-2.9) 08/03/21: Terrell # (Auto) 0.4 x10^3/uL (0.3-0.8) 08/03/21: Eos # (Auto) 0.0 x10^3/uL (0.0-0.2) 08/03/21: Baso # (Auto) 0.2 X10^3/uL (0.0-0.1) H 08/03/21: Absolute Nucleated RBC 0.0 /100WBC 08/03/21: PT 13.6 SECONDS (11.8-14.3) 08/03/21: INR Target Range - 08/03/21: INR 1.07 (0.8-1.3) 08/03/21: APTT 29.0 SECONDS (22.9-36.5) 08/03/21: PTT Comment - 08/03/21: D-Dimer 0.58 ug/ml (0.0-0.57) H* 08/03/21: Sodium 135 mmol/L (136-145) L 08/03/21: Corrected Sodium 136 mmol/L (136-145) 08/03/21 09:31 Potassium 4.3 mmol/L (3.5-5.1) 08/03/21 09:31 Chloride 100 mmol/L (98-107) 08/03/21 09:31 Carbon Dioxide 27.8 mmol/L (21-32) 08/03/21 09:31 BUN 11 mg/dL (7-18) 08/03/21 09:31 Creatinine 0.89 mg/dL (0.70-1.30) 08/03/21 09:31 Est GFR (MDRD) Af Amer > 60 (>60) 08/03/21 09:31 Est GFR (MDRD) Non-Af > 60 (>60) 08/03/21 09:31 Glucose 137 mg/dL (65-99) H 08/03/21 09:31 Calcium 8.9 mg/dL (8.5-10.1) 08/03/21 09:31 Corrected Calcium TNP 08/03/21 09:31 Total Bilirubin 0.40 mg/dL (0.2-1.0) 08/03/21 09:31 AST 15 Units/L (15-37) 08/03/21 09:31 ALT 28 Units/L (12-78) 08/03/21 09:31 Alkaline Phosphatase 112 Units/L (46-116) 08/03/21 09:31 Creatine Kinase 111 Units/L (39-308) 08/03/21 09:31 CK-MB (CK-2) 3.5 ng/mL (0-4.0) 08/03/21 09:31 CK/CKMB % Calc 3.2 % (<4) 08/03/21 09:31 Troponin I High Sens 5.6 ng/L (4.0-60.0) 08/03/21 09:31 B-Natriuretic Peptide 26.9 pg/mL (0-79) 08/03/21 09:31 Total Protein 7.8 g/dL (6.4-8.2) 08/03/21 09:31 Albumin 3.5 g/dL (3.4-5.0) 08/03/21 09:31 Globulin 4.3 g/dL (2.5-4.5) 08/03/21 09:31 Albumin/Globulin Ratio 0.8 Ratio (1.1-2.1) L 08/03/21 09:31 SARS-CoV-2 (PCR) Negative (NEGATIVE) 08/03/21 11:35 XRAY XRAY Interpreted by: Radiologist (CT OF BRAIN NEGATIVE FOR BLEED OR MASS,CHEST XRAY SHOWED COPD.) EKG Rhythm: SB Opioid Opioid Risk Tool Age (Margarito box if 16-45): No History of Preadolescent Sexual Abuse: No Total: 0 Total Score Risk Category: Low Risk Copyright: Maximilian AGUIRRE predicting aberrant behaviors Diagnosis Discharge Problem: Neurologic disorder of eye movements Chest pain Qualifiers: Qualified Code(s): R07.9 - Chest pain, unspecified Instructions Forms: Precautions for COVID19 [facility] Patient Portal Social Distancing
[2021-08-03 09:41] LABS: BASOPHILS # (AUTO) 0.2 X10^3/uL (0.0-0.1); BASOPHILS % (AUTO) 2.3 % (0.2-1.0); EOSINOPHILS % (AUTO) 0.4 % (0.9-2.9); HEMATOCRIT 45.6 % (42.0-54.0); LYMPHOCYTES # (AUTO) 2.1 X10^3/uL (1.3-2.9); MEAN CORPUSCULAR HEMOGLOBIN 31.4 pg (27.0-34.0); MEAN CORPUSCULAR HGB CONC 35.2 g/dL (33.0-35.0); MEAN CORPUSCULAR VOLUME 89.2 fL (80.0-100.0); MEAN PLATELET VOLUME 7.7 fL (7.4-11.0); MONOCYTES # (AUTO) 0.4 x10^3/uL (0.3-0.8); MONOCYTES % (AUTO) 3.8 % (0.0-13.0); NEUTROPHILS # (AUTO) 6.5 x10^3/uL (2.2-4.8); NEUTROPHILS % (AUTO) 70.5 % (42.0-75.0); RED BLOOD COUNT 5.11 X10^6/uL (4.7-6.0); RED CELL DISTRIBUTION WIDTH 13.5 % (11.6-16.5); WHITE BLOOD COUNT 9.2 X10^3/uL (3.6-10.0)
[2021-08-03 10:12] LABS: ALANINE AMINOTRANSFERASE 28 Units/L (12-78); ALBUMIN 3.5 g/dL (3.4-5.0); ALKALINE PHOSPHATASE 112 Units/L (46-116); ASPARTATE AMINO TRANSFERASE 15 Units/L (15-37); BLOOD UREA NITROGEN 11 mg/dL (7-18); CALCIUM 8.9 mg/dL (8.5-10.1); CARBON DIOXIDE 27.8 mmol/L (21-32); CHLORIDE 100 mmol/L (98-107); CKMB % 3.2 % (<4); COR NA(FOR HYPERGLY) 136 mmol/L (136-145); CREATINE KINASE 111 Units/L (39-308); CREATINE KINASE MB 3.5 ng/mL (0-4.0); CREATININE 0.89 mg/dL (0.70-1.30); SODIUM 135 mmol/L (136-145); TOTAL PROTEIN 7.8 g/dL (6.4-8.2); eGFR NON BLACK RACES > 60 (>60)
--- NOTE | 2021-08-03 10:20 | RAD ---
CHEST, 1 VIEWHISTORY: Substernal chest painStudy: AP view of the chest.Comparison:NoneFindings:The cardiomediastinal silhouette is normal. No focal consolidations, pleural effusions or pneumothorax. Osseous structures demonstrate no acute abnormality. Bilateral hyperexpansion and interstitial prominence.IMPRESSION:1. No acute cardiopulmonary process.2. Findings of COPD.Electronically signed by: LING SELLERS (August 03, 2021 10:19:00)
--- NOTE | 2021-08-03 10:21 | CT ---
HISTORYLeft eye pain and decreased visionSTUDYCT head without contrastTechnique: Axial noncontrast images with coronal and sagittal reformats. Dose reduction procedures were used with mA/kv adjusted for body size.[id number] ventricles are normal in size shape and position. There are no focal areas of abnormal attenuation to suggest recent or remote CVA, hemorrhage, mass lesion, or extra-axial fluid collection. The visualized sinuses are clear. The globes are intact. The retro-orbital soft tissues are normal. The calvarium is intact. If acute CVA is a strong clinical consideration MRI with diffusion imaging would be of further diagnostic value in should be obtained.IMPRESSIONNo significant intracranial abnormality identifiedElectronically signed by: BAO LAIRD (August 03, 2021 10:20:25)
[2021-08-03] MEDS ORDERED: ASPIRIN PO ONE (10:22)
[2021-08-03] MEDS ORDERED: ASPIRIN ONE (10:24)
[2021-08-03 13:27] LABS: CKMB % 2.9 % (<4); CREATINE KINASE MB 2.8 ng/mL (0-4.0)
[2021-08-03] MEDS: PERCOCET TAB 5/325 MG PO SCH ×2 (15:00→20:58)
[2021-08-03] MEDS: NEURONTIN CAP 300 MG PO SCH ×2 (15:00→21:03)
--- NOTE | 2021-08-03 15:20 | MRI ---
HISTORYsevere left eye painSTUDYBRAIN W/O CONCOMPARISONCT earlier same dayTECHNIQUEMultiplanar multi-sequence MRI of the brain was obtained utilizing standard departmental protocol. Sagittal and axial T1 weighted images were obtained. Axial T2 and flair weighted images were performed as well. Axial diffusion weighted and ADC trace mapping was performed.FINDINGSThe midline structures appear unremarkable. The evaluation of the brain parenchyma demonstrates no abnormal signal characteristics to suggest intraparenchymal mass or hemorrhage. No extra-axial fluid collections are observed. The ventricular system appears symmetric and nondilated. The CP angle is normal in its appearance without brainstem mass or evidence for acoustic neuroma. The flow voids on both T1 and T2 weighted imaging appear unremarkable. Evaluation of the diffusion weighted imaging does not demonstrate abnormal signal characteristics to suggest acute ischemic change. The extracranial structures are unremarkable.IMPRESSIONUnremarkable MRI of the brain without contrast.Electronically signed by: SUMMER ANNE (August 03, 2021 15:19:21)
[2021-08-03] MEDS: NICOTINE PATCH TD SCH (15:26)
[2021-08-03] MEDS ORDERED: ULTRAM ONE (17:12)
[2021-08-03] MEDS: ULTRAM PO PRN (17:19)
[2021-08-03 17:37] LABS: CKMB % 3.1 % (<4); CREATINE KINASE MB 3.1 ng/mL (0-4.0)
[2021-08-04] MEDS: PERCOCET TAB 5/325 MG PO SCH ×3 (02:30→13:38)
[2021-08-04] MEDS: NEURONTIN CAP 300 MG PO SCH ×2 (05:12→13:38)
[2021-08-04] MEDS: ULTRAM PO PRN ×2 (05:13→05:18)
[2021-08-04 05:38] LABS: BASOPHILS % (AUTO) 0.5 % (0.2-1.0); EOSINOPHILS # (AUTO) 0.1 x10^3/uL (0.0-0.2); EOSINOPHILS % (AUTO) 1.1 % (0.9-2.9); HEMATOCRIT 45.2 % (42.0-54.0); HEMOGLOBIN 15.6 g/dL (13.5-18.0); LYMPHOCYTES # (AUTO) 2.9 X10^3/uL (1.3-2.9); LYMPHOCYTES % (AUTO) 30.3 % (21.0-51.0); MEAN CORPUSCULAR HGB CONC 34.5 g/dL (33.0-35.0); MEAN CORPUSCULAR VOLUME 89.9 fL (80.0-100.0); MEAN PLATELET VOLUME 8.3 fL (7.4-11.0); MONOCYTES # (AUTO) 0.4 x10^3/uL (0.3-0.8); MONOCYTES % (AUTO) 4.4 % (0.0-13.0); NEUTROPHILS # (AUTO) 6.1 x10^3/uL (2.2-4.8); NEUTROPHILS % (AUTO) 63.7 % (42.0-75.0); RED BLOOD COUNT 5.02 X10^6/uL (4.7-6.0); RED CELL DISTRIBUTION WIDTH 13.7 % (11.6-16.5); WHITE BLOOD COUNT 9.6 X10^3/uL (3.6-10.0)
[2021-08-04 05:55] LABS: ALANINE AMINOTRANSFERASE 26 Units/L (12-78); ALBUMIN 3.3 g/dL (3.4-5.0); ALKALINE PHOSPHATASE 102 Units/L (46-116); ASPARTATE AMINO TRANSFERASE 12 Units/L (15-37); BLOOD UREA NITROGEN 11 mg/dL (7-18); CALCIUM 9.2 mg/dL (8.5-10.1); CHLORIDE 101 mmol/L (98-107); COR CA(FOR HYPOALB) 9.8 mg/dL (8.5-10.1); CREATININE 0.92 mg/dL (0.70-1.30); SODIUM 138 mmol/L (136-145); TOTAL PROTEIN 7.6 g/dL (6.4-8.2); eGFR NON BLACK RACES > 60 (>60)
[2021-08-04] MEDS: NICOTINE PATCH TD SCH (08:46)
[2021-08-04] MEDS ORDERED: TobraDEX OPHTH OINT LEFTEYE SCH (09:00)
[2021-08-04] MEDS ORDERED: ASPIRIN EC 81 MG PO SCH (09:00)
[2021-08-04] MEDS ORDERED: ZANAFLEX PO SCH (09:00)
[2021-08-04] MEDS ORDERED: ZESTRIL TAB 5 MG PO SCH (09:00)
[2021-08-04 11:34] VITALS: BP 124/71
--- NOTE | 2021-08-23 21:55 | DR.CARTERS ---
Short Stay Summary - Admission Date Date of Admission: 08/03/21 - Discharge Date Discharge Date: 08/04/21 - Admission Diagnoses (1) Chest pain Status: Acute (2) Neurologic disorder of eye movements Status: Acute (3) Bacterial conjunctivitis Status: Acute - Hospital Course Hospital Course: IS A 55 YEAR OLD PATIENT OF OURS. HE PRESENTED TO THE ER WITH COMPLAINTS OF AND DIFFICULTY SEEING OUT OF THE LEFT EYE. IT IS ASSOCIATED WITH PHOTOSENSITIVITY AND PAIN. THAT STARTED ONE DAY PRIOR TO ARRIVAL. ON THE MORNING OF ARRIVAL, PATIENT BEGAN HAVING CHEST PAIN. HE DESCRIBED PAIN SUBSTERNAL, CONSTANT, HEAVINESS, AND HE RATED PAIN A 2/10 AT THE TIME OF PRESENTATION. PAIN WAS INITIALLY A 5/10 WHEN IT STARTED. HE ALSO ADMITTED TO PALPATATIONS AND SHORTNESS OF BREATH. HIS PMH INCLUDES: CAD, HTN, [place], BELLS PALSY, AND DEGENERATIVE DISC DISEASE. ON EXAMINATION OF PUPILS, THE RIGHT PUPIL IS CONSTRICTED, BUT REACTS. THE LEFT PUPIL IS DILATED, BUT REACTS SLUGGISHLY. ON ARRIVAL TO THE HOSPTIAL, HIS VITALS WERE 97.5-64-22-94%-139/77. LABS WERE OBTAINED. WBC 9.2, RBC 5.11, HGB 16.0, HCT 45.6, D-DIMER 0.58, PT 13.6, INR 1.07, PTT 29.0, SODIUM 135, POTASSIUM 4.3, CHLORIDE 100, CARBON DIOXIDE 27.8, BUN 11, CREATININE 0.89, GLUCOSE 137, CALCIUM 8.9, AST 15, ALT 28, ALK PHOS 112, TOTAL PROTEIN 7.8, ALBUMIN 3.5, BNP 26.9. CARDIAC ENZYMES WERE WITHIN NORMAL LIMITS. A BRAIN CT WAS OBTAINED AND WAS NEGATIVE FOR ACUTE ABNORMALITY. A CHEST XRAY WAS NEGATIVE AND REVEALED COPD, BUT NEGATIVE FOR ACUTE CARDIOPULMONARY PROCESS. A BRAIN MRI WAS OBTAINED AND WAS UNREMARKABLE. EKG REVEALED: SINUS ZAINA WITH HR 58. IN THE ER, HE WAS GIVEN ECOTRIN 325MG PO X 1. HE WAS ADMITTED OBSERVATION STATUS FOR CHEST PAIN RULE OUT ACUTE WI AND NEUROLOGICAL DEFICIT. WE PLAN TO OBTAIN SERIAL CARDIAC ENZYMES AND EKGS. WE WILL ALSO PERFORM NEURO CHECKS Q4H. OTHERWISE, WE WILL FOLLOW-UP WITH AM LABS AND CONTINUE TO MONITOR. ON THE MORNING FOLLOWING ADMISSION, PATIENT IS ALERT AND ORIENTED, LYING IN BED ON MORNING ROUNDS. HE DENIES CHEST PAIN. HE CONTINUES WITH COMPLAINTS OF LEFT EYE PAIN AT TIMES, BUT REPORTS IMPROVEMENT SINCE ADMISSION. ON EXAMINATION, HE IS BRADYCARDIC WITH HR 56. BILATERAL LUNGS NOTED WITH DIMINISHED LUNG SOUNDS THROUGHOUT. ABDOMEN IS ROUND, SOFT, AND NON-TENDER WITH NORMAL BOWEL SOUNDS NOTED IN ALL QUADRANTS. NO UPPER OR LOWER EXTREMITY EDEMA NOTED. HIS VITALS THIS MORNING ARE: 97.8-56-18-96%-143/63. LABS WERE OBTAINED. WBC 9.6, RBC 5.02, HGB 15.6, HCT 45.2, SODIUM 138, POTASSIUM 4.5, CHLORIDE 101, CARBON DIOXIDE 33.0, BUN 11, CREATININE 0.92, GLUCOSE 98, AST 12, ALT 26, ALK PHOS 102, TOTAL PROTEIN 7.6, ALBUMIN 3.3. HER CARDIAC ENZYMES HAVE BEEN NORMAL. NO CHANGES HAVE BEEN NOTED TO EKGS. WE PLANNED FOR DISCHARGE. INSTRUCTIONS FOR MEDICATIONS AND FOLLOW-UP WERE DISCUSSED WITH PATIENT AND FAMILY. THEY VERBALIZED UNDERSTANDING OF ALL ORDERS. HE WAS INSTRUCTED TO FOLLOW-UP IN THE OFFICE IN 1 WEEK. HE WAS DISCHARGED HOME WITH FAMILY IN IMPROVED CONDITION. TIME SPENT ON CLINICAL ASSESSMENT, REVIEWING LABS AND IMAGING, DECISION MAKING, DISCHARGE INSTRUCTIONS, PREPARING DISCHARGE PAPERS, AND DOCUMENTATION GREATER THAN 75 MINUTES. - Discharge Medications Discharge Medications: Prescriptions: - Discharge Plan Disposition: 01 HOME, SELF-CARE Condition: Stable - Follow up/Referrals Follow up/Referrals: Mane Alfaro [Primary Care Provider] - 1 WEEK - Instructions Instructions: Bacterial Conjunctivitis, Adult, [id number], Dexamethasone; Tobramycin eye ointment, How to Use Eye Drops and Eye Ointments Forms: Excuse From Work or School, Precautions for COVID, [facility], Patient Portal, Social Distancing
== END 2021-08-04 13:55 | disposition home or self-care (01) ==
LOC: ER 08:53 → MED/SURG 08:53 → ER 13:07
PROVIDERS: ADMIT Internal Medicine; ATTEND Internal Medicine